=== PATIENT | female | born 1950 | race Caucasian/White ===

== ENCOUNTER 2016-09-27 07:40 | Day surgery (SDC) | payer OTHER ==
[2016-09-26 11:06] VITALS: BMI 21.4
--- NOTE | 2016-09-26 11:53 | HP ---
- Patient Scheduled date of Surgery: 09/27/16 Scheduled Surgical Procedure: Phacoemulsification and cataract extraction with PCIOL Affected Eye: Right Chief Complaint (Indication for surgery): Decreased vision affecting ADLs, Glare when driving at night - Ocular History Other Eye History: Other (antoinette) Eye Medications: vigamox Previous Eye Surgery: s/p ce/pciol Od - Medical History Illnesses: Hypercholesterolemia Current Medications: Ambulatory Orders Rosuvastatin Calcium [Crestor] 10 mg PO DAILY 08/30/14 Allergies/Adverse Reactions: Allergies Allergy/AdvReac Type Severity Reaction Status Date / Time No Known Drug Allergies Allergy Verified 08/30/14 15:32 Ocular Examination - Best Corrected Visual Acuity Distance: Right eye: 20/100 Distance: Left eye: 20/20 - External/Slit Lamp Examination Abnormalities: decreased TBUT, arcus senilis - Intraocular Pressure Intraocular Pressure - Right eye: 14 Intraocular Pressure-Left eye: 14 - Lens Lens: 2-3+ NS 3+ central psc - Vitreous/Retina Vitreous/Retina: c:D 0.3 m/v/p wnl - Special Examination M - Right eye: +1.00 M - Left eye: pl-0.25 x 90 K - Right eye: 44.25/44.50 x170 K - Left eye: 44.75/45 x 10 AL - Right eye: 22.76 AL - Left eye: 23.01 IOL bag: +21.50 d hoya 251 IOL sulcus: +20.5 d hoya 231 IOL AC: +18.0 d MTA 4uo - Impression Impression: Cataract Right Eye (NS cat) - Plan Plan: Phacoemulsification and cataract extraction - IOL Right eye Post-hospital care will be provided in office on: 09/28/16
--- NOTE | 2016-09-26 16:57 | HP ---
History & Physical Update - History History: No Change - Physical Physical: No Change - Assessment Assessment: No Change - Plan Plan: No Change
[~2016-09-27 07:40] MED LIST: ACETAMINOPHEN 325 MG TABLET (FP) PO PRN; BSS (NA/CA/MG/K) BALANCED SALT SOLUTION OPHTH SOLN 15 ML BOTTLE IO ONE; TOBRAMYCIN 0.3% OPHTH OINT 3.5 GM OD ONE; TOBRAMYCIN/DEXAMETHASONE OPHTH. OINTMENT 1 TUBE OD ONE
[2016-09-27] MEDS ORDERED: DICLOFENAC SODIUM 0.1% OPHTHALMIC 2.5ML BOTTLE ONE (08:16)
[2016-09-27] MEDS ORDERED: PHENYLEPHRINE 2.5% OPHTH SOLN 15 ML BOTTLE ONE (08:16)
[2016-09-27] MEDS ORDERED: CIPROFLOXACIN 0.3% EYE DROPS 5 ML BOTTLE ONE (08:16)
[2016-09-27] MEDS ORDERED: TROPICAMIDE 1% OPHTH SOLN 15 ML BOTTLE ONE (08:16)
[2016-09-27] MEDS: CIPROFLOXACIN HCL 0.3% OPHTH 2.5ML BOTTLE OP SCH ×3 (08:26→08:51)
[2016-09-27] MEDS: PHENYLEPHRINE 2.5% OPHTH SOLN 15 ML BOTTLE OP SCH ×3 (08:27→08:51)
[2016-09-27] MEDS: DICLOFENAC SODIUM 0.1% OPHTHALMIC 2.5ML BOTTLE OP SCH ×3 (08:27→08:51)
[2016-09-27] MEDS: TROPICAMIDE 1% OPHTH SOLN 15 ML BOTTLE OP SCH ×3 (08:27→08:52)
[2016-09-27 08:33] VITALS: TEMP 97.5
[2016-09-27] MEDS ORDERED: MIDAZOLAM HCL 2 MG/2 ML SINGLE DOSE VIAL ONE (10:11)
[2016-09-27] MEDS ORDERED: LIDOCAINE HCL 2% JELLY (5 ML/TUBE) TP ONE (10:15)
[2016-09-27] MEDS ORDERED: POVIDONE-IODINE 5% OPHTHALMIC PREP 30 ML SOLUTION OD ONE (10:21)
[2016-09-27] MEDS ORDERED: LIDOCAINE HCL 1% PRESERVATIVE FREE - 30ML VIAL IO ONE ×2 (10:31)
[2016-09-27] MEDS ORDERED: CHONDROITIN SU A/HYALUR SOD 1 KIT IO ONE (10:31)
[2016-09-27] MEDS ORDERED: EPINEPHrine/PF 1 MG/1 ML (1:1,000) AMPULE SQ ONE (10:31)
[2016-09-27] MEDS ORDERED: BSS (NA/CA/MG/K) BALANCED SALT SOLUTION OPHTH SOLN 15 ML BOTTLE IO ONE (10:31)
[2016-09-27] MEDS ORDERED: TOBRAMYCIN/DEXAMETHASONE OPHTH. OINTMENT 1 TUBE OD ONE (10:54)
--- NOTE | 2016-09-27 11:08 | OP ---
Ophthalmology Operative Note Pre-Operative Diagnosis: Cataract Affected Eye: Right Operation: Phacoemulsification and cataract extraction with PCIOL Findings: cataract right eye Post-Operative Diagnosis: Same as Pre-op Slot Floorman: None Anesthesiologist: Diana Griffin Anesthesia: Topical Specimens Removed: none Estimated blood loss: <1 cc Drains & Tubes with Location: none Operative Report Dictated: No
[2016-09-27 11:59] VITALS: BP 108/68; PULSE 100
--- NOTE | 2016-09-28 12:08 | OP ---
DATE OF OPERATION: PREOPERATIVE DIAGNOSIS: Posterior subcapsular cataract right eye. POSTOPERATIVE DIAGNOSIS: Posterior subcapsular cataract right eye. PROCEDURE: Phacoemulsification and cataract extraction with insertion of posterior chamber intraocular lens right eye. SURGEON: Uzma Mccoy MD MANAGER FIRE: None. ANESTHESIA: Topical. ANESTHESIOLOGIST: Dr. Griffin OPERATIVE PROCEDURE: Following satisfactory intravenous sedation, the patient received viscous lidocaine eyedrops and was then prepped and draped in the usual sterile fashion so as to expose only the right eye. Ophthalmic Betadine was instilled into the inferior fornix, and the lashes were taped out of the surgical field. An eyelid speculum was placed into the right eye. A paracentesis was made in superior clear cornea at the limbus. Then 0.5 mL of nonpreserved lidocaine 1% was injected into the anterior chamber, and viscoelastic material was instilled into the anterior chamber via the paracentesis. A 2.4-mm keratome was then used to create the main incision in temporal clear cornea at the limbus. A continuous curvilinear capsulorrhexis was performed using a cystotome and Utrata forceps. Hyrodissection of the lens cortex was performed using BSS on a cannula until the nucleus was noted to be freely rotating. The phacoemulsification tip was then inserted via the main wound and used to sculpt 2 perpendicular grooves into the lens nucleus. The lens nucleus was cracked into 4 quadrants. Each quadrant was lifted out of the capsule into the iris plane and individually phacoemulsified. The remaining cortical material was then aspirated using the irrigation and aspiration. The capsular bag was inflated using Provisc, and a preloaded Hoya lens model 251, power +21.5 diopter was injected into the capsular bag and centered using a Sinskey hook. The residual viscoelastic material was removed from the anterior chamber using irrigation and aspiration. The wound edges were hydrated using BSS. The wound was tested for leakage. It was found to be watertight. Therefore, Tobradex ointment was placed in the eye. The speculum was removed from the eye, and the eyelid was closed. Sterile dressing and shield were placed over the eye, and the patient was transferred to the recovery room in stable condition and told to follow up in 1 day. UZMA MCCOY M.D. JOSE [id number]
== END 2016-09-27 11:59 | disposition home or self-care (01) ==
LOC: JASU-SURG 07:40
PROVIDERS: ATTEND Ophthalmology
PROC: 08RJ3JZ Replacement of Right Lens with Synthetic Substitute, Percutaneous Approach (ICD-10-PCS; principal; 2016-09-27 09:30)
DX: H26.8 Other specified cataract (principal)